=== PATIENT | male | born 1960 | race Hispanic/Latino ===

== ENCOUNTER 2019-10-19 18:06 | Emergency (ER) | payer SELFPAY ==
--- NOTE | 2019-10-19 20:31 | Emergency Department Report ---
ED Medical Clearance HPI - General Chief complaint: Medical Clearance Stated complaint: ETOH Time Seen by Provider: 10/19/19 20:29 Source: patient, EMS Mode of arrival: Stretcher - History of Present Illness Initial comments: Patient is a 59 y/o male that presents emergency room for medical clearance to going to detox. Patient has been accepted to [facility] but was sent here for medical clearance. An ice pain. Patient states his last drink was 2 PM yesterday. Patient denies shaking. Patient denies seizure-like activity. Patient denies headache. Patient denies blurry vision. Patient denies any physical complaints. MD Complaint: medical clearance request -: Sudden Reason for Medical Clearance: intoxication, psychiatric condition Place: home Alledged Intoxication: No Compliant with Home Medications: Yes Traumatic Symptoms: denies traumatic injury Associated Symptoms: denies other symptoms Treatments Prior to Arrival: none Allergies/Adverse reactions: Allergies Allergy/AdvReac Type Severity Reaction Status Date / Time codeine Allergy Unknown Verified 10/19/19 20:37 ED Review of Systems ROS: Stated complaint: ETOH Other details as noted in HPI Constitutional: denies: chills, fever Eyes: denies: eye pain, eye discharge, vision change ENT: denies: ear pain, throat pain Respiratory: denies: cough, shortness of breath, wheezing Cardiovascular: denies: chest pain, palpitations Endocrine: no symptoms reported Gastrointestinal: denies: abdominal pain, nausea, diarrhea Genitourinary: denies: urgency, dysuria Musculoskeletal: denies: back pain, joint swelling, arthralgia Skin: denies: rash, lesions Neurological: denies: headache, weakness, paresthesias Psychiatric: denies: anxiety, depression Hematological/Lymphatic: denies: easy bleeding, easy bruising ED Past Medical Hx - Past Medical History Previous Medical History?: Yes Hx Hypertension: Yes - Surgical History Past Surgical History?: No - Family History Family history: no significant - Social History Smoking Status: Never Smoker Substance Use Type: Alcohol ED Physical Exam - General Limitations: No Limitations General appearance: alert, in no apparent distress - Head Head exam: Present: atraumatic, normocephalic - Eye Eye exam: Present: normal appearance - ENT ENT exam: Present: mucous membranes moist - Neck Neck exam: Present: normal inspection - Respiratory Respiratory exam: Present: normal lung sounds bilaterally. Absent: respiratory distress - Cardiovascular Cardiovascular Exam: Present: regular rate, normal rhythm. Absent: systolic murmur, diastolic murmur, rubs, gallop - GI/Abdominal GI/Abdominal exam: Present: soft, normal bowel sounds - Rectal Rectal exam: Present: deferred - Extremities Exam Extremities exam: Present: normal inspection - Back Exam Back exam: Present: normal inspection - Neurological Exam Neurological exam: Present: alert, oriented X3 - Psychiatric Psychiatric exam: Present: normal affect, normal mood - Skin Skin exam: Present: warm, dry, intact, normal color. Absent: rash ED Course Vital Signs 10/19/19 10/19/19 10/20/19 19:32 22:54 01:50 Temperature 98.8 F 98.1 F Pulse Rate 109 H 103 H Respiratory 18 20 18 Rate Blood Pressure 147/87 Blood Pressure 143/81 [Right] O2 Sat by Pulse 95 95 96 Oximetry - Reevaluation(s) Reevaluation #1: Patient's blood alcohol 0.30. The nurse called [facility] and their policy states the blood alcohol has to be less than 0.25. Patient will be given fluids and a banana bag 10/19/19 23:01 Reevaluation #2: A-shaped is medically cleared however since the patient is acutely intoxicated and the blood alcohol level is above the legal limit, the patient will be discharged to the care of [facility] detox staff. Detox center has been called for transportation of the patient to their center. I discussed all results with patient. I discussed plan of care outpatient. Patient agrees to plan of care. Patient given discharge instructions. 10/20/19 01:57 ED Medical Decision Making - Lab Data Result diagrams: 10/19/19 20:48 10/19/19 20:48 - Medical Decision Making She is a 59-year-old male that presents emergency room for medical clearance in order to enter into alcohol rehabilitation. Patient labs done and unremarkable except for acute alcohol intoxication. According to the patient's detox facility their policy is that the patient's blood alcohol level aspirin below 0.25. Patient's initial alcohol level at 0.30. Patient's repeat after a banana bag and fluids was 0.024 and the patient was medically cleared and discharged to the care of the staff of the rehabilitation facility. - Differential Diagnosis alcohol intoxication, desire detox, alcohol abuse. ED Disposition Clinical Impression: Desire for detoxification, Medical clearance for psychiatric admission Acute alcohol intoxication Qualifiers: Complication of substance-induced condition: uncomplicated Qualified Code(s): F10.920 - Alcohol use, unspecified with intoxication, uncomplicated Disposition: [id number]/TX-70 ANOTHER TYPE HLTHCARE Is pt being admited?: No Does the pt Need Aspirin: No Condition: Stable Instructions: At-Risk Alcohol Use (ED), Abuse of Alcohol (ED), Alcohol Withdrawal (ED) Additional Instructions: Patient to be discharged to the care of the detox staff. Besides the patient's elevated blood alcohol level the patient is medically clear. Patient increase water. He should to return to ER condition worsens. Referrals: PRIMARY CARE, [Primary Care Provider] - 2-3 Days Time of Disposition: 01:59
[2019-10-19 21:05] LABS: Basophils % (Auto) 0.6 % (0.0-1.8); Eosinophils # (Auto) 0.1 K/mm3 (0.0-0.4); Eosinophils % (Auto) 1.4 % (0.0-4.3); Hemoglobin 14.3 gm/dl (11.8-15.2); Lymphocytes # (Auto) 2.4 K/mm3 (1.2-5.4); Lymphocytes % (Auto) 40.7 % (13.4-35.0); Mean Corpuscular HGB Conc 33 % (32-34); Mean Corpuscular Volume 97 fl (84-94); Monocytes # (Auto) 0.4 K/mm3 (0.0-0.8); Monocytes % (Auto) 5.9 % (0.0-7.3); Platelet Count 298 K/mm3 (140-440); Red Blood Count 4.43 M/mm3 (3.65-5.03); Red Cell Distribution Width 16.7 % (13.2-15.2)
[2019-10-19 21:21] LABS: BUN/Creatinine Ratio 13; Blood Urea Nitrogen 10 mg/dL (9-20); Calcium 8.9 mg/dL (8.4-10.2); Hemolysis Index 24
[2019-10-19] MEDS ORDERED: THIAMINE 100 MG, FOLIC ACID 1 MG, MULTIPLE VITAMIN INJ, ADULT 10 ML in SODIUM CHLORIDE ... IV ONE (22:33)
[2019-10-19] MEDS ORDERED: SODIUM CHLORIDE 0.9% 1000 ML 1,000 ML IV ONE (22:33)
[2019-10-19 22:39] LABS: Bilirubin,Urine NEG (Negative); Blood,Urine MOD (Negative); Color,Urine Yellow (Yellow); Mucus,Urine 1+ /HPF; Protein,Urine <15 mg/dL mg/dL (Negative); Urobilinogen,Urine < 2.0 mg/dL (<2.0)
[2019-10-19 22:47] LABS: Amphetamine Screen,Urine PRESUMPTIVE NEGATIVE; Benzodiazepines Screen,Urine PRESUMPTIVE NEGATIVE; Cannabinoid Screen,Urine PRESUMPTIVE NEGATIVE; Cocaine Screen,Urine PRESUMPTIVE NEGATIVE; Methadone Screen,Urine PRESUMPTIVE NEGATIVE; Opiate Screen,Urine PRESUMPTIVE NEGATIVE
[2019-10-20 01:52] VITALS: BP 143/81
== END 2019-10-20 02:19 | disposition other institution (70) ==
LOC: ED 18:06
DX: F10.920 Alcohol use, unspecified with intoxication, uncomplicated (principal); I10 Essential (primary) hypertension; Z88.6 Allergy status to analgesic agent; Z79.899 Other long term (current) drug therapy
CPT/HCPCS: 36415; 80048; 80307; 81001; 85025; 96365; 96366; 99284; J3411; J7030; 80320; G0480